=== PATIENT | male | born 1950 | race Two or more races ===

== ENCOUNTER 2021-03-13 13:08 | Inpatient (IN) | payer MEDICARE, MEDICAID ==
[2021-03-13] VITALS (29 sets, daily range): BP systolic 99–140; BP diastolic 52–73
[~2021-03-13] VITALS: Ht 177.8 cm; Wt 75.0 kg
[~2021-03-13 13:08] MED LIST: HEPARIN SODIUM 1,000 UNIT/1ML VIAL IV ONE; NICARDIPINE 100MCG/ML 10ML VIAL (CATH LAB) IV ONE; NITROGLYCERIN 50MCG/ML 10ML VIAL (CATH LAB) IV ONE
[2021-03-13 13:27] LABS: BASOPHILS % 1.2 % (0.0-2.0); EOSINOPHILS % 1.2 % (0.0-5.0); HEMATOCRIT. 47.8 % (42.0-52.0); HEMOGLOBIN. 15.7 g/dL (14.0-18.0); LYMPHOCYTES % 44.6 % (20.0-50.0); MEAN CORPUSCULAR HEMOGLOBIN 31.4 pg (28.0-32.0); MEAN CORPUSCULAR VOLUME 95.8 fL (80.0-94.0); MEAN PLATELET VOLUME 8.6 fl (7.4-10.4); MONOCYTES % 7.7 % (2.0-8.0); NEUTROPHILS % 45.3 % (40.0-76.0); PLATELET 157 x1000/uL (130-400); RED BLOOD CELL COUNT 4.99 mill/uL (4.7-6.1); RED CELL DISTRIBUTION WIDTH 14.2 % (11.6-14.6)
[2021-03-13] MEDS ORDERED: ASPIRIN 81MG TABLET NG ONE (13:30)
[2021-03-13] MEDS ORDERED: SUCCINYLCHOLINE CHLORIDE 200MG/10ML IV ONE (13:30)
[2021-03-13] MEDS ORDERED: PROPOFOL 10MG/ML 100ML 100 ML IV ONE (13:30)
[2021-03-13] MEDS ORDERED: HEPARIN 5000 UNITS/ML VIAL IV ONE (13:30)
[2021-03-13] MEDS ORDERED: ETOMIDATE 2MG/ML 10ML VIAL IV ONE (13:30)
[2021-03-13] MEDS ORDERED: AMIODARONE HCL 150 MG in DEXT 5% WATER 100 ML IV ONE (13:30)
[2021-03-13 13:36] LABS: CHLORIDE 104 mEq/L (98-107)
[2021-03-13 13:40] LABS: ETHANOL BLOOD < 10 mg/dL
[2021-03-13] MEDS ORDERED: DOPAMINE 800MG/500ML PREMIX 500 ML IV ONE (13:45)
[2021-03-13] MEDS ORDERED: DOPAMINE 400MG/250ML PREMIX 250 ML IV ONE (13:50)
[2021-03-13] MEDS ORDERED: MIDAZOLAM HCL 100 MG in SODIUM CHLORIDE 0.9% 100 ML IV PRN (14:00)
[2021-03-13] MEDS ORDERED: MIDAZOLAM HCL 2 MG/2 ML VIAL IV ONE (14:00)
[2021-03-13] MEDS ORDERED: FENTANYL CITRATE/PF 50MCG/ML 2ML VIAL IV ONE (14:00)
[2021-03-13] MEDS ORDERED: MIDAZOLAM 100MG/100ML PMX 100 ML IV PRN (14:00)
[2021-03-13 14:38] LABS: INR 1.1; PROTHROMBIN TIME 11.7 sec (9.6-11.0)
[2021-03-13 14:45] LABS: *COCAINE SCREEN URINE NEGATIVE (NEGATIVE); CANNABINOID URINE SCREEN PRESUMTIVE POSITIVE (NEGATIVE); OPIATES URINE SCREEN NEGATIVE (NEGATIVE); PHENCYCLIDINE URINE SCREEN NEGATIVE (NEGATIVE)
[2021-03-13 14:47] LABS: METHADONE URINE SCREEN NEGATIVE (NEGATIVE)
[2021-03-13 14:54] LABS: *BENZODIAZEPINES SCREEN URINE NEGATIVE (NEGATIVE)
[2021-03-13 14:56] LABS: *AMPHETAMINES SCREEN URINE NEGATIVE (NEGATIVE); *BARBITURATES SCREEN URINE NEGATIVE (NEGATIVE)
[2021-03-13] MEDS ORDERED: ATROPINE SULFATE 1MG/10ML SYR IV PRN (16:00)
[2021-03-13] MEDS ORDERED: SODIUM CHLORIDE 0.45% 1,000 ML IV SCH (16:00)
[2021-03-13] MEDS ORDERED: AMLO5TAB88 MT (16:35)
[2021-03-13] MEDS ORDERED: CARV12.545 MT (16:38)
[2021-03-13] MEDS ORDERED: ATOR40TA70 MT (16:38)
[2021-03-13] MEDS ORDERED: CHLO25TA2 PO (16:38)
[2021-03-13 16:59] LABS: BG BASE EXCESS -3.8 mmol/L (-2.0-2.0); BG CARBOXYHEMOGLOBIN 0.5 % (0.5-1.5); BG DEOXYHEMOGLOBIN 6.1 % (0.0-5.0); BG FRACTION INSPIRED OXYGEN 100; BG HCO3 ACT 20.8 mmol/L (22.0-26.0); BG METHEMOGLOBIN 0.4 % (0.0-1.5); BG OXYGEN SATURATION 93.8 % (92.0-98.5); BG PCO2 36.3 mmHg (35.0-45.0); BG PH 7.375 (7.350-7.450); BG PO2 69.2 mmHg (75.0-100.0); BG SAMPLE SITE LEFT BRACHIAL; BG TOTAL HEMOGLOBIN 15.1 g/dL (12.0-18.0); BG VENT MODE VENT - AC
[2021-03-13] MEDS: PROPOFOL 10MG/ML 100ML 100 ML IV PRN (17:10)
[2021-03-13] MEDS: IPRATROPIUM/ALBUTEROL 0.5-3(2.5)MG/3ML NEB HHN SCH (20:34)
[2021-03-13] MEDS: LEVETIRACETAM 500MG PREMIX 100 ML IV SCH (20:41)
[2021-03-13] MEDS: DEXT 5%/0.9% NACL 1,000 ML IV SCH (20:42)
[2021-03-13] MEDS ORDERED: ATORVASTATIN CALCIUM 40MG TABLET PO SCH (21:00)
[2021-03-13] MEDS: DOPAMINE 400MG/250ML PREMIX 250 ML IV PRN (21:08)
[2021-03-14] VITALS (88 sets, daily range): BP systolic 96–129; BP diastolic 58–88
[2021-03-14] MEDS ORDERED: DEXTROSE 50% WATER 50ML SYRINGE IV PRN (00:30)
[2021-03-14] MEDS: IPRATROPIUM/ALBUTEROL 0.5-3(2.5)MG/3ML NEB HHN SCH ×4 (02:20→20:55)
[2021-03-14] MEDS: DOPAMINE 400MG/250ML PREMIX 250 ML IV PRN ×3 (03:18→20:56)
[2021-03-14 05:42] LABS: HEMATOCRIT. 44.4 % (42.0-52.0); HEMOGLOBIN. 14.6 g/dL (14.0-18.0); MEAN CORPUSCULAR HEMOGLOBIN 31.2 pg (28.0-32.0); MEAN CORPUSCULAR VOLUME 94.7 fL (80.0-94.0); MEAN PLATELET VOLUME 8.5 fl (7.4-10.4); PLATELET 308 x1000/uL (130-400); RED BLOOD CELL COUNT 4.69 mill/uL (4.7-6.1)
[2021-03-14 05:46] LABS: CHLORIDE 103 mEq/L (98-107)
[2021-03-14] MEDS: PROPOFOL 10MG/ML 100ML 100 ML IV PRN ×2 (06:17→19:05)
[2021-03-14] MEDS: BLOOD SUGAR DIAGNOSTIC STRIP TEST SCH ×3 (06:32→17:45)
[2021-03-14] MEDS: DEXT 5%/0.9% NACL 1,000 ML IV SCH ×2 (06:34→20:56)
[2021-03-14] MEDS ORDERED: LIDOCAINE HCL 1% 20ML VIAL (Pyxis) INJ ONE (08:45)
[2021-03-14] MEDS: LEVETIRACETAM 500MG PREMIX 100 ML IV SCH ×2 (09:29→20:56)
[2021-03-14] MEDS: ASPIRIN 81MG TABLET PO SCH (09:30)
[2021-03-14] MEDS: CLOPIDOGREL 75MG TABLET PO SCH (09:30)
[2021-03-14 10:41] LABS: BG BASE EXCESS 1.1 mmol/L (-2.0-2.0); BG CARBOXYHEMOGLOBIN 0.3 % (0.5-1.5); BG DEOXYHEMOGLOBIN 0.9 % (0.0-5.0); BG FRACTION INSPIRED OXYGEN 100; BG HCO3 ACT 23.6 mmol/L (22.0-26.0); BG METHEMOGLOBIN 0.6 % (0.0-1.5); BG OXYGEN SATURATION 99.1 % (92.0-98.5); BG OXYHEMOGLOBIN 98.2 % (94.0-97.0); BG PCO2 31.6 mmHg (35.0-45.0); BG PH 7.491 (7.350-7.450); BG PO2 251.9 mmHg (75.0-100.0); BG SAMPLE SITE RIGHT RADIAL; BG TOTAL HEMOGLOBIN 14.7 g/dL (12.0-18.0); BG VENT MODE VENT - AC
[2021-03-14 10:54] LABS: PLATELET ESTIMATE NORMAL
[2021-03-14] MEDS ORDERED: POTASSIUM CHLORIDE INJ 40 MEQ in DEXT 5% WATER 250 ML IV SCH (11:00)
[2021-03-14 19:26] LABS: HEPATITIS B SURFACE ANTIGEN NEGATIVE
[2021-03-14] MEDS: ATORVASTATIN CALCIUM 40MG TABLET PO SCH (20:57)
[2021-03-15] VITALS (95 sets, daily range): BP systolic 79–149; BP diastolic 52–91
[2021-03-15] MEDS: BLOOD SUGAR DIAGNOSTIC STRIP TEST SCH ×4 (00:50→17:30)
[2021-03-15] MEDS: IPRATROPIUM/ALBUTEROL 0.5-3(2.5)MG/3ML NEB HHN SCH ×4 (01:03→20:34)
[2021-03-15 01:18] LABS: HEMATOCRIT 39.5 % (42.0-52.0); HEMOGLOBIN 13.5 g/dL (14.0-18.0)
[2021-03-15] MEDS: PROPOFOL 10MG/ML 100ML 100 ML IV PRN ×4 (03:20→20:08)
[2021-03-15 05:46] LABS: HEMATOCRIT 39.3 % (42.0-52.0); HEMOGLOBIN 13.2 g/dL (14.0-18.0)
[2021-03-15] MEDS: DOPAMINE 400MG/250ML PREMIX 250 ML IV PRN (07:22)
[2021-03-15] MEDS: ASPIRIN 81MG TABLET PO SCH (08:57)
[2021-03-15] MEDS: LEVETIRACETAM 500MG PREMIX 100 ML IV SCH ×2 (08:57→20:22)
[2021-03-15] MEDS: PANTOPRAZOLE SODIUM 40 MG/VIAL IV SCH (08:57)
[2021-03-15] MEDS: CLOPIDOGREL 75MG TABLET PO SCH (08:57)
[2021-03-15] MEDS: DEXT 5%/0.9% NACL 1,000 ML IV SCH ×2 (09:15→23:20)
[2021-03-15 10:05] LABS: BG BASE EXCESS 3.2 mmol/L (-2.0-2.0); BG CARBOXYHEMOGLOBIN 0.3 % (0.5-1.5); BG DEOXYHEMOGLOBIN 1.1 % (0.0-5.0); BG FRACTION INSPIRED OXYGEN 60; BG HCO3 ACT 26.3 mmol/L (22.0-26.0); BG METHEMOGLOBIN 0.3 % (0.0-1.5); BG OXYGEN SATURATION 98.9 % (92.0-98.5); BG OXYHEMOGLOBIN 98.3 % (94.0-97.0); BG PCO2 35.6 mmHg (35.0-45.0); BG PH 7.487 (7.350-7.450); BG PO2 147.4 mmHg (75.0-100.0); BG SAMPLE SITE RIGHT RADIAL; BG TOTAL HEMOGLOBIN 14.1 g/dL (12.0-18.0); BG VENT MODE VENT - AC
[2021-03-15 11:44] LABS: CHLORIDE 104 mEq/L (98-107)
[2021-03-15 11:46] LABS: HEMATOCRIT. 37.1 % (42.0-52.0); HEMOGLOBIN. 13.1 g/dL (14.0-18.0); MEAN CORPUSCULAR HEMOGLOBIN 32.6 pg (28.0-32.0); MEAN CORPUSCULAR VOLUME 92.6 fL (80.0-94.0); MEAN PLATELET VOLUME 8.9 fl (7.4-10.4); PLATELET 227 x1000/uL (130-400); RED CELL DISTRIBUTION WIDTH 13.7 % (11.6-14.6)
[2021-03-15 13:11] LABS: PLATELET ESTIMATE NORMAL
[2021-03-15] MEDS ORDERED: POTASSIUM CHLORIDE INJ 60 MEQ in DEXT 5% WATER 470 ML IV NR (13:30)
[2021-03-15] MEDS ORDERED: PROPOFOL 10MG/ML 100ML 100 ML IV PRN (18:45)
[2021-03-15] MEDS: ATORVASTATIN CALCIUM 40MG TABLET PO SCH (20:22)
[2021-03-16] VITALS (95 sets, daily range): BP systolic 87–131; BP diastolic 56–89
[2021-03-16] MEDS: BLOOD SUGAR DIAGNOSTIC STRIP TEST SCH ×4 (00:25→18:00)
[2021-03-16] MEDS: DOPAMINE 400MG/250ML PREMIX 250 ML IV PRN (01:49)
[2021-03-16] MEDS: PROPOFOL 10MG/ML 100ML 100 ML IV PRN ×4 (01:52→20:05)
[2021-03-16] MEDS: IPRATROPIUM/ALBUTEROL 0.5-3(2.5)MG/3ML NEB HHN SCH ×4 (02:19→20:38)
[2021-03-16] MEDS: FENTANYL CITRATE/PF 2,500 MCG in SODIUM CHLORIDE 0.9% 200 ML IV PRN (02:35)
[2021-03-16 05:53] LABS: BASOPHILS % 0.6 % (0.0-2.0); EOSINOPHILS % 1.2 % (0.0-5.0); HEMATOCRIT. 37.7 % (42.0-52.0); HEMOGLOBIN. 12.6 g/dL (14.0-18.0); LYMPHOCYTES % 7.8 % (20.0-50.0); MEAN CORPUSCULAR HEMOGLOBIN 31.1 pg (28.0-32.0); MEAN CORPUSCULAR VOLUME 92.8 fL (80.0-94.0); MEAN PLATELET VOLUME 8.6 fl (7.4-10.4); MONOCYTES % 8.7 % (2.0-8.0); NEUTROPHILS % 81.7 % (40.0-76.0); PLATELET 260 x1000/uL (130-400); RED BLOOD CELL COUNT 4.06 mill/uL (4.7-6.1); RED CELL DISTRIBUTION WIDTH 13.9 % (11.6-14.6)
[2021-03-16 06:03] LABS: CHLORIDE 107 mEq/L (98-107)
[2021-03-16] MEDS ORDERED: POTASSIUM CHLORIDE INJ 60 MEQ in DEXT 5% WATER 500 ML IV SCH (08:00)
[2021-03-16] MEDS: LEVETIRACETAM 500MG PREMIX 100 ML IV SCH ×2 (08:01→20:03)
[2021-03-16] MEDS: ASPIRIN 81MG TABLET PO SCH (08:01)
[2021-03-16] MEDS: CLOPIDOGREL 75MG TABLET PO SCH (08:01)
[2021-03-16] MEDS: PANTOPRAZOLE SODIUM 40 MG/VIAL IV SCH (08:01)
[2021-03-16 08:57] LABS: BG BASE EXCESS 2.5 mmol/L (-2.0-2.0); BG CARBOXYHEMOGLOBIN 0.3 % (0.5-1.5); BG DEOXYHEMOGLOBIN 2.1 % (0.0-5.0); BG FRACTION INSPIRED OXYGEN 40; BG HCO3 ACT 25.5 mmol/L (22.0-26.0); BG METHEMOGLOBIN 0.1 % (0.0-1.5); BG OXYGEN SATURATION 97.9 % (92.0-98.5); BG OXYHEMOGLOBIN 97.5 % (94.0-97.0); BG PCO2 34.2 mmHg (35.0-45.0); BG PH 7.491 (7.350-7.450); BG PO2 101.8 mmHg (75.0-100.0); BG SAMPLE SITE RIGHT RADIAL; BG TOTAL HEMOGLOBIN 12.7 g/dL (12.0-18.0); BG VENT MODE VENT - AC
[2021-03-16] MEDS ORDERED: PROPOFOL 10MG/ML 100ML 100 ML IV PRN (12:30)
[2021-03-16] MEDS: DEXT 5%/0.9% NACL 1,000 ML IV SCH (12:49)
[2021-03-16] MEDS: ATORVASTATIN CALCIUM 40MG TABLET PO SCH (20:03)
[2021-03-16] MEDS ORDERED: SODIUM CHLORIDE 0.9% 500 ML IV NR (21:40)
[2021-03-17] VITALS (71 sets, daily range): BP systolic 85–164; BP diastolic 24–104
[2021-03-17] MEDS: BLOOD SUGAR DIAGNOSTIC STRIP TEST SCH ×4 (00:22→17:55)
[2021-03-17] MEDS: IPRATROPIUM/ALBUTEROL 0.5-3(2.5)MG/3ML NEB HHN SCH ×4 (01:48→20:57)
[2021-03-17] MEDS: DEXT 5%/0.9% NACL 1,000 ML IV SCH ×2 (02:00→15:40)
[2021-03-17] MEDS: FENTANYL CITRATE/PF 2,500 MCG in SODIUM CHLORIDE 0.9% 200 ML IV PRN (03:08)
[2021-03-17 07:30] LABS: BG BASE EXCESS 0.4 mmol/L (-2.0-2.0); BG CARBOXYHEMOGLOBIN 0.3 % (0.5-1.5); BG DEOXYHEMOGLOBIN 3.6 % (0.0-5.0); BG FRACTION INSPIRED OXYGEN 100; BG HCO3 ACT 25.3 mmol/L (22.0-26.0); BG METHEMOGLOBIN 0.2 % (0.0-1.5); BG OXYGEN SATURATION 96.4 % (92.0-98.5); BG OXYHEMOGLOBIN 95.9 % (94.0-97.0); BG PH 7.398 (7.350-7.450); BG PO2 85.4 mmHg (75.0-100.0); BG SAMPLE SITE RIGHT RADIAL; BG TOTAL HEMOGLOBIN 12.1 g/dL (12.0-18.0); BG VENT MODE VENT - AC
[2021-03-17 07:55] LABS: BG BASE EXCESS 0.4 mmol/L (-2.0-2.0); BG CARBOXYHEMOGLOBIN 0.3 % (0.5-1.5); BG FRACTION INSPIRED OXYGEN 100; BG HCO3 ACT 25.3 mmol/L (22.0-26.0); BG METHEMOGLOBIN 0.3 % (0.0-1.5); BG OXYHEMOGLOBIN 95.4 % (94.0-97.0); BG PCO2 42.1 mmHg (35.0-45.0); BG PH 7.397 (7.350-7.450); BG PO2 86.6 mmHg (75.0-100.0); BG SAMPLE SITE RIGHT RADIAL; BG TOTAL HEMOGLOBIN 11.8 g/dL (12.0-18.0); BG TOTAL RESPIRATORY RATE 12 b/min; BG VENT MODE VENT - AC
[2021-03-17] MEDS: PANTOPRAZOLE SODIUM 40 MG/VIAL IV SCH (08:46)
[2021-03-17] MEDS: CLOPIDOGREL 75MG TABLET PO SCH (08:46)
[2021-03-17] MEDS: ASPIRIN 81MG TABLET PO SCH (08:46)
[2021-03-17] MEDS: LEVETIRACETAM 500MG PREMIX 100 ML IV SCH ×2 (08:46→20:54)
[2021-03-17 09:31] LABS: BASOPHILS % 0.4 % (0.0-2.0); EOSINOPHILS % 4.6 % (0.0-5.0); HEMATOCRIT. 33.2 % (42.0-52.0); HEMOGLOBIN. 11.6 g/dL (14.0-18.0); LYMPHOCYTES % 8.1 % (20.0-50.0); MEAN CORPUSCULAR HEMOGLOBIN 32.5 pg (28.0-32.0); MEAN CORPUSCULAR VOLUME 92.7 fL (80.0-94.0); MEAN PLATELET VOLUME 9.2 fl (7.4-10.4); MONOCYTES % 6.9 % (2.0-8.0); PLATELET 236 x1000/uL (130-400); RED BLOOD CELL COUNT 3.58 mill/uL (4.7-6.1)
[2021-03-17 09:34] LABS: CHLORIDE 108 mEq/L (98-107)
[2021-03-17 09:47] LABS: BG BASE EXCESS -0.4 mmol/L (-2.0-2.0); BG CARBOXYHEMOGLOBIN 0.3 % (0.5-1.5); BG DEOXYHEMOGLOBIN 8.4 % (0.0-5.0); BG HCO3 ACT 23.2 mmol/L (22.0-26.0); BG METHEMOGLOBIN 0.5 % (0.0-1.5); BG OXYGEN SATURATION 91.5 % (92.0-98.5); BG OXYHEMOGLOBIN 90.8 % (94.0-97.0); BG SAMPLE SITE RIGHT RADIAL; BG TOTAL HEMOGLOBIN 13.8 g/dL (12.0-18.0); BG VENT MODE MASK - NRB
[2021-03-17] MEDS ORDERED: POTASSIUM CHLORIDE INJ 40 MEQ in DEXT 5% WATER 500 ML IV NR (18:00)
[2021-03-17] MEDS: ATORVASTATIN CALCIUM 40MG TABLET PO SCH (20:57)
[2021-03-18] VITALS (49 sets, daily range): BP systolic 105–148; BP diastolic 69–101
[2021-03-18] MEDS: BLOOD SUGAR DIAGNOSTIC STRIP TEST SCH ×4 (00:27→18:55)
[2021-03-18] MEDS: IPRATROPIUM/ALBUTEROL 0.5-3(2.5)MG/3ML NEB HHN SCH ×5 (02:35→20:10)
[2021-03-18] MEDS: DEXT 5%/0.9% NACL 1,000 ML IV SCH (04:25)
[2021-03-18] MEDS: CLOPIDOGREL 75MG TABLET PO SCH (08:27)
[2021-03-18] MEDS: ASPIRIN 81MG TABLET PO SCH (08:27)
[2021-03-18] MEDS: PANTOPRAZOLE SODIUM 40 MG/VIAL IV SCH (08:27)
[2021-03-18] MEDS: LEVETIRACETAM 500MG PREMIX 100 ML IV SCH ×2 (08:27→21:52)
[2021-03-18] MEDS ORDERED: ASPI-1160 PO (08:42)
[2021-03-18] MEDS ORDERED: KEPP500 MT (08:42)
[2021-03-18] MEDS ORDERED: CLOP75TA15 PO (08:42)
[2021-03-18] MEDS ORDERED: LIP40 PO (08:42)
[2021-03-18 15:51] LABS: CHLORIDE 109 mEq/L (98-107)
[2021-03-18 15:57] LABS: BASOPHILS % 0.7 % (0.0-2.0); EOSINOPHILS % 2.8 % (0.0-5.0); HEMATOCRIT. 37.2 % (42.0-52.0); HEMOGLOBIN. 13.4 g/dL (14.0-18.0); LYMPHOCYTES % 11.1 % (20.0-50.0); MEAN CORPUSCULAR HEMOGLOBIN 32.7 pg (28.0-32.0); MEAN CORPUSCULAR VOLUME 90.9 fL (80.0-94.0); MEAN PLATELET VOLUME 8.6 fl (7.4-10.4); MONOCYTES % 7.8 % (2.0-8.0); NEUTROPHILS % 77.6 % (40.0-76.0); PLATELET 289 x1000/uL (130-400); RED BLOOD CELL COUNT 4.09 mill/uL (4.7-6.1); RED CELL DISTRIBUTION WIDTH 13.7 % (11.6-14.6)
[2021-03-18] MEDS ORDERED: POTASSIUM CHLORIDE 20MEQ TABLET SR PO NR (17:00)
[2021-03-18] MEDS ORDERED: POTASSIUM CHLORIDE INJ 40 MEQ in DEXT 5% WATER 250 ML IV NR (17:30)
[2021-03-18] MEDS: ATORVASTATIN CALCIUM 40MG TABLET PO SCH (21:51)
[2021-03-19] VITALS (12 sets, daily range): BP systolic 100–147; BP diastolic 73–98
[2021-03-19] MEDS: IPRATROPIUM/ALBUTEROL 0.5-3(2.5)MG/3ML NEB HHN SCH ×4 (02:24→21:35)
[2021-03-19] MEDS: ACETAMINOPHEN 325MG TABLET PO PRN (06:18)
[2021-03-19] MEDS: BLOOD SUGAR DIAGNOSTIC STRIP TEST SCH ×4 (06:18→17:13)
[2021-03-19] MEDS: PANTOPRAZOLE SODIUM 40 MG/VIAL IV SCH (08:57)
[2021-03-19] MEDS: ASPIRIN 81MG TABLET PO SCH (08:57)
[2021-03-19] MEDS: CLOPIDOGREL 75MG TABLET PO SCH (08:57)
[2021-03-19] MEDS: LEVETIRACETAM 500MG PREMIX 100 ML IV SCH ×2 (08:57→20:17)
[2021-03-19] MEDS ORDERED: POTASSIUM CHLORIDE 20MEQ TABLET SR PO SCH (12:00)
[2021-03-19 13:08] LABS: HEMATOCRIT 37.1 % (42.0-52.0); HEMOGLOBIN 13.1 g/dL (14.0-18.0); MEAN CORPUSCULAR HEMOGLOBIN 32.6 pg (28.0-32.0); MEAN CORPUSCULAR VOLUME 92.5 fL (80.0-94.0); PLATELET 280 x1000/uL (130-400); RED BLOOD CELL COUNT 4.01 mill/uL (4.7-6.1)
[2021-03-19 13:16] LABS: CHLORIDE 107 mEq/L (98-107)
[2021-03-19] MEDS: METOPROLOL TARTRATE 25MG TABLET PO SCH (20:17)
[2021-03-19] MEDS: ATORVASTATIN CALCIUM 40MG TABLET PO SCH (20:17)
[2021-03-20] VITALS (8 sets, daily range): BP systolic 109–150; BP diastolic 76–97
[2021-03-20] MEDS: BLOOD SUGAR DIAGNOSTIC STRIP TEST SCH ×5 (00:53→23:25)
[2021-03-20] MEDS: IPRATROPIUM/ALBUTEROL 0.5-3(2.5)MG/3ML NEB HHN SCH ×4 (00:54→21:16)
[2021-03-20] MEDS: ASPIRIN 81MG TABLET PO SCH (10:01)
[2021-03-20] MEDS: PANTOPRAZOLE SODIUM 40 MG/VIAL IV SCH (10:01)
[2021-03-20] MEDS: CLOPIDOGREL 75MG TABLET PO SCH (10:01)
[2021-03-20] MEDS: METOPROLOL TARTRATE 25MG TABLET PO SCH ×2 (10:03→20:29)
[2021-03-20] MEDS: LEVETIRACETAM 500MG PREMIX 100 ML IV SCH ×2 (10:04→20:29)
[2021-03-20] MEDS ORDERED: METO25TA6 PO (16:37)
[2021-03-20] MEDS: ATORVASTATIN CALCIUM 40MG TABLET PO SCH (20:30)
[2021-03-20] MEDS: ACETAMINOPHEN 325MG TABLET PO PRN (20:30)
[2021-03-21] VITALS: BP 100/68
[2021-03-21] MEDS: IPRATROPIUM/ALBUTEROL 0.5-3(2.5)MG/3ML NEB HHN SCH ×3 (01:35→14:07)
[2021-03-21 04:00] VITALS: BP 125/79
[2021-03-21] MEDS: BLOOD SUGAR DIAGNOSTIC STRIP TEST SCH ×2 (06:16→12:33)
[2021-03-21 07:42] LABS: VITAMIN B12 SERUM 1177 pg/mL (211-911)
[2021-03-21] MEDS ORDERED: PANTOPRAZOLE 40MG DR TABLET PO SCH (08:50)
[2021-03-21] MEDS ORDERED: LEVETIRACETAM 500MG TABLET PO SCH (09:00)
[2021-03-21] MEDS ORDERED: LISINOPRIL 2.5MG TABLET PO SCH (09:00)
[2021-03-21] MEDS: ASPIRIN 81MG TABLET PO SCH (09:04)
[2021-03-21] MEDS: CLOPIDOGREL 75MG TABLET PO SCH (09:04)
[2021-03-21] MEDS: METOPROLOL TARTRATE 25MG TABLET PO SCH (09:04)
[2021-03-21 16:31] LABS: BASOPHILS % 0.8 % (0.0-2.0); EOSINOPHILS % 5.3 % (0.0-5.0); HEMATOCRIT. 40.3 % (42.0-52.0); HEMOGLOBIN. 13.9 g/dL (14.0-18.0); LYMPHOCYTES % 12.4 % (20.0-50.0); MEAN CORPUSCULAR HEMOGLOBIN 31.9 pg (28.0-32.0); MEAN CORPUSCULAR VOLUME 92.8 fL (80.0-94.0); MONOCYTES % 9.9 % (2.0-8.0); NEUTROPHILS % 71.6 % (40.0-76.0); PLATELET 415 x1000/uL (130-400); RED BLOOD CELL COUNT 4.35 mill/uL (4.7-6.1); RED CELL DISTRIBUTION WIDTH 14.2 % (11.6-14.6)
[2021-03-21 16:37] LABS: CHLORIDE 106 mEq/L (98-107)
[2021-03-21 17:22] VITALS: BP 100/65
== END 2021-03-21 17:12 | DRG 246 ==
LOC: EDBD 13:46 → ER 13:46 → CVICU 13:47 → EDBEDREQSVC 13:51 → EDBEDREQ 13:51 → ENRESERV 14:22 → 5WST 03-19 03:37
PROVIDERS: ADMIT Family Medicine; ATTEND Family Medicine
PROC: 5A1945Z Respiratory Ventilation, 24-96 Consecutive Hours (ICD-10-PCS; principal; 2021-03-13)
PROC: 027135Z Dilation of Coronary Artery, Two Arteries with Two Drug-eluting Intraluminal Devices, Percutaneous Approach (ICD-10-PCS; 2021-03-13)
PROC: 5A12012 Performance of Cardiac Output, Single, Manual (ICD-10-PCS; 2021-03-13)
PROC: B2111ZZ Fluoroscopy of Multiple Coronary Arteries using Low Osmolar Contrast (ICD-10-PCS; 2021-03-13)
PROC: B2151ZZ Fluoroscopy of Left Heart using Low Osmolar Contrast (ICD-10-PCS; 2021-03-13)
PROC: 0BH18EZ Insertion of Endotracheal Airway into Trachea, Via Natural or Artificial Opening Endoscopic (ICD-10-PCS; 2021-03-13)
PROC: 05HY33Z Insertion of Infusion Device into Upper Vein, Percutaneous Approach (ICD-10-PCS; 2021-03-14)
PROC: B54MZZA Ultrasonography of Right Upper Extremity Veins, Guidance (ICD-10-PCS; 2021-03-14)
PROC: 4A10X4Z Monitoring of Central Nervous Electrical Activity, External Approach (ICD-10-PCS; 2021-03-15)
DX: I21.19 ST elevation (STEMI) myocardial infarction involving other coronary artery of inferior wall (principal); I46.9 Cardiac arrest, cause unspecified; J96.01 Acute respiratory failure with hypoxia; I49.01 Ventricular fibrillation; G92 Toxic encephalopathy; E87.2 Acidosis; G40.909 Epilepsy, unspecified, not intractable, without status epilepticus; I48.91 Unspecified atrial fibrillation; E87.6 Hypokalemia; Z20.822 Contact with and (suspected) exposure to COVID-19; I95.9 Hypotension, unspecified; R73.9 Hyperglycemia, unspecified; I25.119 Atherosclerotic heart disease of native coronary artery with unspecified angina pectoris; R74.01 Elevation of levels of liver transaminase levels; F12.10 Cannabis abuse, uncomplicated; I10 Essential (primary) hypertension
CPT/HCPCS: 36415; 36600; 71045; 74018; 76937; 80048; 80053; 80305; 80320; 82375; 82607; 82805; 82962; 83605; 83735; 83880; 84443; 84478; 84484; 85014; 85018; 85025; 85027; 86850; 86900; 87070; 87426; 92610; 92929; 92943; 93005; 93458; 94002; 94003; 94640; 95816; 97116; 97162; 97166; 99291; C1725; C1769; C1874; C1887; C1893; C9113; J0282; J1265; J1644; J1953; J2250; J2704; J3010; J3480; J3490; J7040; J7042; J7050; J7060; G0480

== ENCOUNTER 2021-03-21 17:20 | Inpatient (IN) | payer MEDICARE, MEDICAID ==
[~2021-03-21] VITALS: Ht 177.8 cm; Wt 86.2 kg
[~2021-03-21 17:20] MED LIST changes: +ASPI-1160 PO; +CLOP75TA15 PO; -HEPARIN SODIUM 1,000 UNIT/1ML VIAL IV ONE; +KEPP500 MT; +LIP40 PO; +METO25TA6 PO; -NICARDIPINE 100MCG/ML 10ML VIAL (CATH LAB) IV ONE; -NITROGLYCERIN 50MCG/ML 10ML VIAL (CATH LAB) IV ONE
[2021-03-21 17:30] VITALS: BP 116/79
[2021-03-21] MEDS ORDERED: IPRATROPIUM/ALBUTEROL 0.5-3(2.5)MG/3ML NEB HHN PRN (18:30)
[2021-03-21] MEDS ORDERED: DEXTROSE 50% WATER 50ML SYRINGE IV PRN (18:30)
[2021-03-21] MEDS ORDERED: ACETAMINOPHEN 325MG TABLET PO PRN (18:30)
[2021-03-21 18:53] VITALS: BP 116/79
[2021-03-21 20:00] VITALS: BP 118/71
[2021-03-21] MEDS: METOPROLOL TARTRATE 25MG TABLET PO SCH (21:00)
[2021-03-21] MEDS: ATORVASTATIN CALCIUM 40MG TABLET PO SCH (21:43)
[2021-03-21] MEDS: LEVETIRACETAM 500MG TABLET PO SCH (21:43)
[2021-03-22] MEDS: BLOOD SUGAR DIAGNOSTIC STRIP TEST SCH ×5 (06:05→21:09)
[2021-03-22] MEDS: PANTOPRAZOLE 40MG DR TABLET PO SCH (06:06)
[2021-03-22 07:34] VITALS: BP 109/74
[2021-03-22] MEDS: LEVETIRACETAM 500MG TABLET PO SCH ×2 (08:54→21:08)
[2021-03-22] MEDS: CLOPIDOGREL 75MG TABLET PO SCH (08:55)
[2021-03-22] MEDS: ASPIRIN 81MG TABLET PO SCH (08:56)
[2021-03-22] MEDS: METOPROLOL TARTRATE 25MG TABLET PO SCH ×2 (08:58→21:09)
[2021-03-22] MEDS: LISINOPRIL 2.5MG TABLET PO SCH (08:59)
[2021-03-22] MEDS ORDERED: BISACODYL 5MG TABLET PO PRN (13:45)
[2021-03-22] MEDS: DOCUSATE SODIUM 100MG CAPSULE PO SCH (16:35)
[2021-03-22 20:00] VITALS: BP 125/84
[2021-03-22] MEDS: ATORVASTATIN CALCIUM 40MG TABLET PO SCH (21:08)
[2021-03-23] MEDS: BLOOD SUGAR DIAGNOSTIC STRIP TEST SCH ×3 (06:32→18:55)
[2021-03-23] MEDS: PANTOPRAZOLE 40MG DR TABLET PO SCH (06:33)
[2021-03-23 07:13] LABS: BASOPHILS % 1.1 % (0.0-2.0); EOSINOPHILS % 5.1 % (0.0-5.0); HEMATOCRIT. 36.1 % (42.0-52.0); HEMOGLOBIN. 12.1 g/dL (14.0-18.0); LYMPHOCYTES % 19.8 % (20.0-50.0); MEAN CORPUSCULAR HEMOGLOBIN 31.5 pg (28.0-32.0); MONOCYTES % 10.9 % (2.0-8.0); NEUTROPHILS % 63.1 % (40.0-76.0); PLATELET 410 x1000/uL (130-400); RED BLOOD CELL COUNT 3.84 mill/uL (4.7-6.1); RED CELL DISTRIBUTION WIDTH 14.2 % (11.6-14.6)
[2021-03-23 07:16] LABS: CHLORIDE 108 mEq/L (98-107)
[2021-03-23 07:26] LABS: LDL CHOLESTEROL 81 mg/dL (5-100)
[2021-03-23 07:28] LABS: HDL CHOLESTEROL 25 mg/dL (40-59)
[2021-03-23 07:58] VITALS: BP 119/77
[2021-03-23] MEDS: CLOPIDOGREL 75MG TABLET PO SCH (08:48)
[2021-03-23] MEDS: LEVETIRACETAM 500MG TABLET PO SCH ×2 (08:48→21:43)
[2021-03-23] MEDS: ASPIRIN 81MG TABLET PO SCH (08:48)
[2021-03-23] MEDS: DOCUSATE SODIUM 100MG CAPSULE PO SCH ×2 (08:48→18:56)
[2021-03-23] MEDS: METOPROLOL TARTRATE 25MG TABLET PO SCH ×2 (08:49→21:44)
[2021-03-23] MEDS: LISINOPRIL 2.5MG TABLET PO SCH (08:49)
[2021-03-23 20:00] VITALS: BP 115/75
[2021-03-23] MEDS: ATORVASTATIN CALCIUM 40MG TABLET PO SCH (21:44)
[2021-03-24] MEDS: BLOOD SUGAR DIAGNOSTIC STRIP TEST SCH ×4 (06:18→17:54)
[2021-03-24] MEDS: FAMOTIDINE 20MG TABLET PO SCH ×2 (06:18→16:49)
[2021-03-24 07:59] VITALS: BP 123/82
[2021-03-24] MEDS: LISINOPRIL 2.5MG TABLET PO SCH (08:08)
[2021-03-24] MEDS: METOPROLOL TARTRATE 25MG TABLET PO SCH ×2 (08:08→21:22)
[2021-03-24] MEDS: ASPIRIN 81MG TABLET PO SCH (08:08)
[2021-03-24] MEDS: LEVETIRACETAM 500MG TABLET PO SCH ×2 (08:08→21:20)
[2021-03-24] MEDS: DOCUSATE SODIUM 100MG CAPSULE PO SCH ×2 (08:08→16:49)
[2021-03-24] MEDS: CLOPIDOGREL 75MG TABLET PO SCH (08:09)
[2021-03-24 20:00] VITALS: BP 108/61
[2021-03-24] MEDS: ATORVASTATIN CALCIUM 40MG TABLET PO SCH (21:20)
[2021-03-25] MEDS: BLOOD SUGAR DIAGNOSTIC STRIP TEST SCH ×3 (06:07→12:00)
[2021-03-25] MEDS: FAMOTIDINE 20MG TABLET PO SCH (06:07)
[2021-03-25 07:51] VITALS: BP 125/80
[2021-03-25] MEDS: DOCUSATE SODIUM 100MG CAPSULE PO SCH (08:22)
[2021-03-25] MEDS: CLOPIDOGREL 75MG TABLET PO SCH (08:22)
[2021-03-25] MEDS: METOPROLOL TARTRATE 25MG TABLET PO SCH (08:22)
[2021-03-25] MEDS: ASPIRIN 81MG TABLET PO SCH (08:22)
[2021-03-25] MEDS: LEVETIRACETAM 500MG TABLET PO SCH (08:23)
[2021-03-25] MEDS: LISINOPRIL 2.5MG TABLET PO SCH (08:23)
[2021-03-25 15:15] VITALS: BP 122/80
== END 2021-03-25 16:22 | disposition home or self-care (01) | DRG 91 ==
PROVIDERS: ADMIT Psychiatry & Neurology Neurology; ATTEND Family Medicine
DX: G93.1 Anoxic brain damage, not elsewhere classified (principal); G92 Toxic encephalopathy; I49.01 Ventricular fibrillation; J96.01 Acute respiratory failure with hypoxia; I46.9 Cardiac arrest, cause unspecified; E87.2 Acidosis; I25.10 Atherosclerotic heart disease of native coronary artery without angina pectoris; R74.01 Elevation of levels of liver transaminase levels; E87.6 Hypokalemia; I48.91 Unspecified atrial fibrillation; G40.909 Epilepsy, unspecified, not intractable, without status epilepticus; R73.9 Hyperglycemia, unspecified; R26.89 Other abnormalities of gait and mobility; F39 Unspecified mood [affective] disorder; F17.210 Nicotine dependence, cigarettes, uncomplicated; I25.2 Old myocardial infarction; Z95.5 Presence of coronary angioplasty implant and graft; Z79.899 Other long term (current) drug therapy
CPT/HCPCS: 36415; 80048; 80061; 80076; 82962; 84443; 85025; 92523; 92610; 93970; 94640; 97110; 97116; 97162; 97166; 97530; 97535